=== PATIENT | female | born 1935 | race Caucasian/White ===

== ENCOUNTER 2019-02-10 08:49 | Emergency (ER) | payer BC ==
[~2019-02-10] VITALS: Ht 157.5 cm; Wt 56.7 kg
--- NOTE | 2019-02-10 08:56 | NUR ---
Patient to ER bed 8 to gown for evaluation. Side rails up. . assumed care.
[2019-02-10 08:58] VITALS: BP_SYST 155
[2019-02-10] MEDS ORDERED: LIDOCAINE 1% 10 MG/ML, 20 ML MDV INJ ONE (09:15)
--- NOTE | 2019-02-10 09:15 | NUR ---
RN has assessed pt , pt is alert with poor historian noted. pt and live in a assisted living, and is accompanied by daughter who was called and drove both parents to ER. Pt stated she fell out of bed during the night around 0100. pt has a 4mm laceraton to the left ear, and purple discoloration behind the ear as well. Pt has now been taken to CT scan of head. pt is otherwise stable. Daughter stated she is on a few medications for Dementia.
--- NOTE | 2019-02-10 09:15 | NUR ---
YUE Hartley at bedside examining patient.
[2019-02-10] MEDS ORDERED: BACITRACIN 1 GM OINT TP ONE ×2 (10:00→10:03)
[2019-02-10 10:05] VITALS: BP_SYST 155
--- NOTE | 2019-02-10 10:08 | NUR ---
Patient given written and verbal discharge instructions and verbalizes understanding. ER MD discussed with patient the results and treatment provided. Patient in stable condition. ID arm band removed. No Rx given. Patient educated on pain management and to follow up with PMD. Pain Scale 0/10. Opportunity for questions provided and answered. Medication side effect fact sheet provided.
== END 2019-02-10 10:08 | disposition home or self-care (01) ==
LOC: SED 08:49
DX: S01.312A Laceration without foreign body of left ear, initial encounter (principal); W22.8XXA Striking against or struck by other objects, initial encounter; F03.90 Unspecified dementia, unspecified severity, without behavioral disturbance, psychotic disturbance, mood disturbance, and anxiety; I10 Essential (primary) hypertension; Y93.89 Activity, other specified; Y92.89 Other specified places as the place of occurrence of the external cause; Y99.8 Other external cause status
CPT/HCPCS: 12011; 70450; 99284; J2001

== ENCOUNTER 2019-02-21 13:58 | Emergency (ER) | payer BC, OTHER ==
[~2019-02-21] VITALS: Ht 157.5 cm; Wt 59.0 kg
[2019-02-21 14:00] VITALS: BP_SYST 150
--- NOTE | 2019-02-21 14:15 | NUR ---
BROUGHT BACK TO [facility]WAY BED AND TRIAGED. REPORT GIVEN TO SANGEETA
--- NOTE | 2019-02-21 14:28 | NUR ---
Patient to ER bed H1 to gown for evaluation. Side rails up.
--- NOTE | 2019-02-21 14:30 | NUR ---
Pt brought by self, A&Ox4, pt presents to ER for suture removal of L ear, no s/s of infection noted, afebrile.
--- NOTE | 2019-02-21 14:35 | NUR ---
Dr Arroyo at bedside examining patient
[2019-02-21 15:16] VITALS: BP_SYST 142
--- NOTE | 2019-02-21 15:17 | NUR ---
Patient given written and verbal discharge instructions and verbalizes understanding. ER MD discussed with patient the results and treatment provided. Patient in stable condition. ID arm band removed. No Rx given. Patient educated on pain management and to follow up with PMD. Pain Scale 1/10 tolerable for patient. Opportunity for questions provided and answered. Medication side effect fact sheet provided.
== END 2019-02-21 15:17 | disposition home or self-care (01) ==
LOC: SED 13:58
DX: S01.312D Laceration without foreign body of left ear, subsequent encounter (principal); F03.90 Unspecified dementia, unspecified severity, without behavioral disturbance, psychotic disturbance, mood disturbance, and anxiety; I10 Essential (primary) hypertension; W22.8XXD Striking against or struck by other objects, subsequent encounter
CPT/HCPCS: 99281

== ENCOUNTER 2019-03-19 08:56 | Emergency (ER) | payer OTHER ==
[~2019-03-19] VITALS: Ht 157.5 cm; Wt 56.7 kg
[2019-03-19 09:14] VITALS: BP_SYST 206
[2019-03-19 10:51] VITALS: BP_SYST 180
== END 2019-03-19 10:51 | disposition home or self-care (01) ==
LOC: SED 08:56
DX: S01.83XA Puncture wound without foreign body of other part of head, initial encounter (principal); I10 Essential (primary) hypertension; W06.XXXA Fall from bed, initial encounter; Y93.89 Activity, other specified; Y92.89 Other specified places as the place of occurrence of the external cause; Y99.8 Other external cause status
CPT/HCPCS: 70450-TC; 99284